=== PATIENT | female | born 1985 | race Caucasian/White ===

== ENCOUNTER 2021-08-13 10:56 | Outpatient (REF) | payer OTHER, SELFPAY ==
[2021-08-13 13:55] LABS: MANUAL DIFF FLAG NO
[2021-08-13 14:03] LABS: Appearance Urine CLEAR; Color Urine YELLOW; Glucose Urine UA NEG (NEG); Leukocyte Esterase Urine NEG (NEG); Nitrite Urine NEG (NEG); UACC Culture Trigger NO; Urine Blood TRACE (NEG); Urine Ketones NEG (NEG); Urine Protein NEG (NEG-TRACE)
[2021-08-13 14:04] LABS: Basophils Percent Auto 0.6 % (0-2); Eosinophils Absolute Auto 0.1 X10*3/uL (0.0-0.4); Eosinophils Percent Auto 1.5 % (0-4); Hematocrit 39.2 % (37-47); Imm Gran Abs Auto 0.02 X10*3/uL (0.00-0.03); Imm Gran Pct Auto 0.3 % (0.0-0.4); Lymphocytes Absolute Auto 2.1 X10*3/uL (1.2-4.9); Mean Corpuscular HGB Conc 33.2 g/dl (31.0-35.0); Mean Corpuscular Volume 87.3 fL (80-98); Mean Platelet Volume 10.4 fL (9.4-12.3); Monocytes Absolute Auto 0.4 X10*3/uL (0.1-1.2); Monocytes Percent Auto 5.2 % (2-11); Neutrophils Absolute Auto 4.2 X10*3/uL (2.0-8.3); Neutrophils Percent Auto 61.4 % (45-73); Platelet Count 285 X10*3/uL (160-400); Red Blood Count 4.49 X10*6/uL (4.20-5.50); Red Cell Distribution Width 11.6 % (11.0-16.0); White Blood Count 6.9 X10*3/uL (4.8-10.8)
[2021-08-13 14:18] LABS: RBC Urine 0-2 /HPF (0)
[2021-08-13 14:19] LABS: Bacteria Urine TRACE /LPF; Squamous Epithelial Cell Urine TRACE /LPF; WBC Urine 0 /HPF (0-4)
[2021-08-13 14:32] LABS: Alanine Aminotransferase 20 U/L (0-31); Albumin Level 4.7 g/dL (3.5-5.0); Alkaline Phosphatase 90 U/L (39-117); Anion Gap 15 (12-20); Aspartate Amino Transferase 16 U/L (5-31); Bilirubin Total 0.9 mg/dL (0.0-1.0); Blood Urea Nitrogen 14 mg/dL (9-16); Calcium 9.7 mg/dL (8.4-10.2); Carbon Dioxide 25 mmol/L (22-29); Chloride 103 mmol/L (96-108); Cholesterol 184 mg/dL; Estimated Glomerular Filt Rate > 60; Glucose Random 73 mg/dL (60-115); HDL Cholesterol 70 mg/dL; Iron 139 mcg/dL (30-160); LDL Cholesterol Calculated 105 mg/dl; Percent Iron Saturation 41 % (15-50); Sodium 139 mmol/L (135-145); Total Iron Binding Capacity 341 mcg/dL (228-428); Total Protein 7.2 g/dL (6.5-8.0); Triglycerides 45 mg/dL; Unsaturated Iron Binding 202 ug/dL
[2021-08-13 14:57] LABS: TSH reflex Free T4 1.78 uIU/mL (0.32-4.0); Vitamin D 25-OH Total 30.4 ng/mL (>30)
[2021-08-13 14:59] LABS: Folate 19.2 ng/mL (> or = 4.0); Vitamin B12 391 pg/mL (200-900)
[2021-08-13 15:28] LABS: Ferritin 51 ng/mL (10-122)
== END 2021-08-13 10:57 | disposition home or self-care (01) ==
LOC: HO.HMGCLDS 10:56
PROVIDERS: PCP Nurse Practitioner Family; Visit Provider Nurse Practitioner Family
DX: R53.83 Other fatigue (principal)
CPT/HCPCS: 36415; 80053; 80061; 81001; 81003; 82306; 82607; 82728; 82746; 83540; 84443; 85025

== ENCOUNTER 2021-12-08 09:52 | Outpatient (REF) | payer OTHER, SELFPAY ==
[2021-12-08 11:51] LABS: Appearance Urine HAZY; Color Urine YELLOW; Glucose Urine UA NEG (NEG); Leukocyte Esterase Urine NEG (NEG); Nitrite Urine NEG (NEG); PH 6.5 (5.0-8.0); Specific Gravity - Urine 1.025 (1.005-1.025); Urine Blood NEG (NEG); Urine Ketones NEG (NEG); Urine Protein NEG (NEG-TRACE)
[2021-12-08 12:04] LABS: Free T4 (Free Thyroxine) 0.91 ng/dL (0.71-1.85); TSH reflex Free T4 1.65 uIU/mL (0.32-4.0)
[2021-12-09 18:37] LABS: Triiodothyronine T3 Free 3.2 pg/mL (2.3-4.2)
[2021-12-09 21:25] LABS: Thyroid Peroxidase Antibodies 1 IU/mL (<9)
== END 2021-12-08 09:53 | disposition home or self-care (01) ==
LOC: HO.HMGCLDS 09:52
PROVIDERS: Visit Provider Nurse Practitioner Family
DX: Z00.00 Encounter for general adult medical examination without abnormal findings (principal); R53.83 Other fatigue
CPT/HCPCS: 36415; 81003; 84439; 84443; 84481; 86376

== ENCOUNTER 2022-02-18 08:29 | Outpatient (REF) | payer OTHER, SELFPAY ==
--- NOTE | ~2022-02-18 | US_ITS ---
EXAMINATION: US VENOUS WITH DOPPLER UPPER EXTREMITY, LEFT CLINICAL INFORMATION: Pain COMPARISON: None TECHNIQUE: Ultrasound of the upper extremity is performed using compression sonography and color and pulse Doppler flow with assessment of augmentation of flow. There is also imaging and Doppler assessment of the jugular and subclavian veins. Spectral analysis with color-flow imaging is performed. FINDINGS: Respiratory variation, normal compression, and augmented flow are noted throughout the upper extremity including the axillary, brachial, cubital, and radial and ulnar veins. There is normal flow in the internal jugular and subclavian veins. There is no visible deep or superficial thrombophlebitis. If the patient's symptoms progress, a followup ultrasound in 5 -7 days might be of value to exclude proximal propagation from a nonvisualized distal arm vein. US/US venous duplex UE LT IMPRESSION: No DVT demonstrated in the left upper extremity.
== END 2022-02-18 08:30 | disposition home or self-care (01) ==
LOC: HO.US 08:29
PROVIDERS: PCP Nurse Practitioner Family; Visit Provider Nurse Practitioner Family
DX: M79.602 Pain in left arm (principal)
CPT/HCPCS: 93971

== ENCOUNTER 2022-03-16 15:22 | Outpatient (REF) | payer OTHER, SELFPAY ==
[2022-03-20 16:57] LABS: HPV mRNA E6/E7 rflx Not Detected (Not Detected)
== END 2022-03-16 15:23 | disposition home or self-care (01) ==
LOC: HO.LAB 15:22
PROVIDERS: PCP Nurse Practitioner Family; Visit Provider Advanced Practice Midwife
DX: Z01.419 Encounter for gynecological examination (general) (routine) without abnormal findings (principal); Z11.51 Encounter for screening for human papillomavirus (HPV)
CPT/HCPCS: 87624; 88142

== ENCOUNTER 2022-04-02 16:32 | Outpatient (REF) | payer OTHER, SELFPAY ==
--- NOTE | ~2022-04-02 | US_ITS ---
EXAMINATION: US ABDOMEN LIMITED CLINICAL INFORMATION: Intra-abdominal and pelvic swelling, mass and lump. Assess for hernia. COMPARISON: No similar priors. TECHNIQUE: Real-time imaging of the midline abdomen. US/US abdomen limited FINDINGS/IMPRESSION: Ultrasound images of the soft tissues of the supraumbilical region in the area of concern. No evidence of hernia or measurable lesions. If symptoms persist, recommend correlation with a CT.
== END 2022-04-02 16:33 | disposition home or self-care (01) ==
LOC: HO.US 16:32
PROVIDERS: PCP Nurse Practitioner Family; Visit Provider Nurse Practitioner Family
DX: R19.00 Intra-abdominal and pelvic swelling, mass and lump, unspecified site (principal)
CPT/HCPCS: 76705

== ENCOUNTER 2022-06-28 09:27 | Outpatient (REF) | payer OTHER, SELFPAY ==
[2022-06-28 11:38] LABS: MANUAL DIFF FLAG NO
[2022-06-28 11:59] LABS: Basophils Absolute Auto 0.1 X10*3/uL (0.0-0.2); Basophils Percent Auto 0.8 % (0-2); Eosinophils Absolute Auto 0.2 X10*3/uL (0.0-0.4); Eosinophils Percent Auto 2.5 % (0-4); Hematocrit 39.4 % (37.0-47.0); Hemoglobin 13.1 g/dl (12.0-16.0); Imm Gran Abs Auto 0.02 X10*3/uL (0.00-0.03); Imm Gran Pct Auto 0.3 % (0.0-0.4); Lymphocytes Absolute Auto 2.3 X10*3/uL (1.2-4.9); Lymphocytes Percent Auto 31.6 % (20-40); Mean Corpuscular HGB Conc 33.2 g/dl (31.0-35.0); Mean Corpuscular Volume 87.4 fL (80.0-98.0); Mean Platelet Volume 9.9 fL (9.4-12.3); Monocytes Absolute Auto 0.4 X10*3/uL (0.1-1.2); Monocytes Percent Auto 5.9 % (2-11); Neutrophils Absolute Auto 4.2 x10*3/uL (2.0-8.3); Neutrophils Percent Auto 58.9 % (45-73); Platelet Count 313 X10*3/uL (160-400); Red Blood Count 4.51 X10*6/uL (4.20-5.50); Red Cell Distribution Width 11.9 % (11.0-16.0); White Blood Count 7.1 X10*3/uL (4.8-10.8)
[2022-06-28 12:02] LABS: Alanine Aminotransferase 20 U/L (0-31); Albumin Level 4.7 g/dL (3.5-5.0); Alkaline Phosphatase 54 U/L (39-117); Anion Gap 13 (12-20); Aspartate Amino Transferase 15 U/L (5-31); Bilirubin Total 0.9 mg/dL (0.0-1.0); Blood Urea Nitrogen 10 mg/dL (9-16); Calcium 9.1 mg/dL (8.4-10.2); Carbon Dioxide 26 mmol/L (22-29); Chloride 104 mmol/L (96-108); Estimated Glomerular Filt Rate > 60; Glucose Fasting 82 mg/dL (60-99); Lipase 28 U/L (8-78); Potassium 4.3 mmol/L (3.3-5.1); Sodium 139 mmol/L (135-145); Total Protein 7.3 g/dL (6.5-8.0)
[2022-06-28 12:13] LABS: Appearance Urine CLEAR; Color Urine YELLOW; Glucose Urine UA NEG (NEG); Leukocyte Esterase Urine NEG (NEG); Nitrite Urine NEG (NEG); PH 7.5 (5.0-8.0); Specific Gravity - Urine 1.015 (1.005-1.025); UACC Culture Trigger NO; Urine Blood TRACE (NEG); Urine Ketones NEG (NEG); Urine Protein NEG (NEG-TRACE)
[2022-06-28 12:24] LABS: TSH reflex Free T4 2.42 uIU/mL (0.32-4.0); Vitamin D 25-OH Total 26.7 ng/mL (>30)
[2022-06-28 12:42] LABS: RBC Urine 0-2 /HPF (0); Squamous Epithelial Cell Urine 2+ /LPF; WBC Urine 0 /HPF (0-4)
== END 2022-06-28 09:28 | disposition home or self-care (01) ==
LOC: HO.HMGCLDS 09:27
PROVIDERS: PCP Nurse Practitioner Family; Visit Provider Nurse Practitioner Family
DX: R10.9 Unspecified abdominal pain (principal)
CPT/HCPCS: 36415; 80053; 81001; 81003; 82306; 83690; 84443; 85025

== ENCOUNTER 2022-07-27 09:44 | Outpatient (REF) | payer OTHER, SELFPAY ==
[2022-07-27 11:24] LABS: Urine Cytology See Pathology rpt
[2022-07-27 11:43] LABS: Appearance Urine Clear; Color Urine Yellow; Glucose Urine UA Negative (Negative); Leukocyte Esterase Urine Small (1+) (Negative); Nitrite Urine Negative (Negative); Urine Blood Negative (Negative); Urine Ketones Negative (Negative); Urine Protein Negative (Neg-Trace)
[2022-07-27 12:10] LABS: UMIC TRIGGER UACC YES
[2022-07-27 13:42] LABS: Bacteria Urine Trace (None Seen); Hyaline Casts Urine 0-2 /LPF (0-2); RBC Urine 0-2 /HPF (0-2); UACC Culture Trigger YES; WBC Urine 0-5 /HPF (0-5)
== END 2022-07-27 09:45 | disposition home or self-care (01) ==
LOC: HO.HMGCLDS 09:44
PROVIDERS: PCP Nurse Practitioner Family; Visit Provider Nurse Practitioner Family
DX: R31.29 Other microscopic hematuria (principal)
CPT/HCPCS: 81001; 81003; 87086; 88112

== ENCOUNTER 2022-09-11 13:43 | Outpatient (REF) | payer OTHER, SELFPAY ==
[2022-09-11 15:34] LABS: Alanine Aminotransferase 14 U/L (0-31); Albumin Level 4.7 g/dL (3.5-5.0); Alkaline Phosphatase 57 U/L (39-117); Anion Gap 16 (12-20); Aspartate Amino Transferase 14 U/L (5-31); Bilirubin Total 0.6 mg/dL (0.0-1.0); Blood Urea Nitrogen 12 mg/dL (9-16); C Reactive Protein 0.03 mg/dL (< or = 0.50); Calcium 9.6 mg/dL (8.4-10.2); Carbon Dioxide 26 mmol/L (22-29); Chloride 104 mmol/L (96-108); Estimated Glomerular Filt Rate > 60; Glucose Random 84 mg/dL (60-115); Potassium 4.5 mmol/L (3.3-5.1); Sodium 141 mmol/L (135-145); Total Protein 7.2 g/dL (6.5-8.0)
[2022-09-11 15:55] LABS: Free T4 (Free Thyroxine) 0.97 ng/dL (0.71-1.85); Thyroid Stimulating Hormone 1.62 uIU/mL (0.32-4.0); Vitamin D 25-OH Total 29.6 ng/mL (>30)
[2022-09-13 12:56] LABS: Thyroid Peroxidase Antibodies 1 IU/mL (<9)
[2022-09-13 13:02] LABS: DHEA Sulfate 80 mcg/dL (19-237); Follicle Stimulating Hormone 6.1 mIU/mL; Lutenizing Hormone 5.4 mIU/mL
[2022-09-13 22:32] LABS: Thyroglobulin Antibodies <1 IU/mL (< or = 1)
[2022-09-16 12:07] LABS: Triiodothyronine T3 Reverse 14 ng/dL (8-25)
[2022-09-16 17:31] LABS: Testosterone, Free 1.5 pg/mL (0.1-6.4); Testosterone, Total 16 ng/dL (2-45)
[2022-09-19 02:01] LABS: Estradiol Free 0.71 pg/mL; Estradiol, Ultrasensitive 43 pg/mL
[2022-09-19 20:06] LABS: Progesterone <0.1 ng/mL
== END 2022-09-11 13:44 | disposition home or self-care (01) ==
LOC: HO.HMGCLDS 13:43
PROVIDERS: PCP Nurse Practitioner Family; Visit Provider Physician Assistant
DX: E03.9 Hypothyroidism, unspecified (principal); F32.81 Premenstrual dysphoric disorder; E55.9 Vitamin D deficiency, unspecified; E28.2 Polycystic ovarian syndrome; R53.83 Other fatigue; N95.9 Unspecified menopausal and perimenopausal disorder
CPT/HCPCS: 36415; 80053; 82306; 82627; 82670; 82681; 83001; 83002; 84144; 84402; 84403; 84439; 84443; 84482; 86140; 86376; 86800; 99212

== ENCOUNTER 2022-11-02 10:33 | Emergency (ER) | payer OTHER, SELFPAY ==
--- NOTE | ~2022-11-02 | CT_ITS ---
EXAMINATION: CT ABDOMEN AND PELVIS WITHOUT CONTRAST CLINICAL INFORMATION: Left lower quadrant pain radiating to the left leg. COMPARISON: Ultrasound abdomen limited 04/02/2022 TECHNIQUE: Multidetector volumetric imaging was performed from the superior aspect of the liver through the pubic symphysis. Sagittal and coronal reformatted images were obtained on the technologist's workstation. This CT examination was performed using dose optimization techniques as appropriate, variously including the following: *Automated exposure control *Adjustment of mA and/or kV according to patient size (this includes techniques or standardized protocols for targeted exams where dose is matched to indication/reason for exam; i.e. extremities or head) *Use of iterative reconstruction technique DLP: 440 mGy-cm FINDINGS: LUNG BASES: The visualized lung bases are unremarkable. LIVER, GALLBLADDER, AND BILIARY TREE: The liver is normal in size, shape, and attenuation. No focal hepatic lesion or biliary ductal dilatation is present. Status post cholecystectomy. PANCREAS: Unremarkable. SPLEEN: Unremarkable. ADRENAL GLANDS: Unremarkable. KIDNEYS AND URETERS: There is a nonobstructive 2 mm stone in the mid upper pole of the right kidney. There are no stones in the left kidney. There is no hydronephrosis. No ureteral calculi. BLADDER: Unremarkable. GASTROINTESTINAL TRACT: The small and large bowel are unremarkable. The appendix is nonvisualized.. No inflammation of the mesentery. ABDOMINAL WALL: No significant hernia is appreciated. LYMPH NODES: Normal. VASCULAR: Unremarkable. PELVIC VISCERA: Unremarkable. OSSEOUS STRUCTURES: Unremarkable. CT/CT abdomen pelvis wo IV con IMPRESSION: 1. No acute abnormality CT scan abdomen pelvis. 2. 2 mm nonobstructive stone in the right kidney. 3. Status post cholecystectomy. Fleischner guidelines were followed.
[2022-11-02 10:51] VITALS: BP 125/94; PULSE 110; RESP 18; TEMP 36.9; O2SAT 98; BMI 22.4
--- NOTE | 2022-11-02 10:57 | ECG_ITS ---
Test Reason : tachycardia Blood Pressure : / mmHG Vent. Rate : 095 BPM Atrial Rate : 095 BPM P-R Int : 156 ms QRS Dur : 092 ms QT Int : 342 ms P-R-T Axes : 072 041 067 degrees QTc Int : 429 ms Normal sinus rhythm with sinus arrhythmia Incomplete right bundle branch block Borderline ECG No previous ECGs available Referred By: Generic ED Physician Electronically Signed By:Milind Padilla
[2022-11-02 11:30] LABS: MANUAL DIFF FLAG NO
[2022-11-02 11:33] LABS: Basophils Absolute Auto 0.1 X10*3/uL (0.0-0.2); Basophils Percent Auto 0.6 % (0-2); Eosinophils Absolute Auto 0.1 X10*3/uL (0.0-0.4); Eosinophils Percent Auto 1.2 % (0-4); Hemoglobin 14.4 g/dl (12.0-16.0); Imm Gran Abs Auto 0.04 X10*3/uL (0.00-0.03); Imm Gran Pct Auto 0.5 % (0.0-0.4); Lymphocytes Absolute Auto 1.8 X10*3/uL (1.2-4.9); Mean Corpuscular HGB Conc 33.5 g/dl (31.0-35.0); Mean Corpuscular Hemoglobin 28.6 pg (27.0-33.0); Mean Corpuscular Volume 85.3 fL (80.0-98.0); Mean Platelet Volume 9.1 fL (9.4-12.3); Monocytes Absolute Auto 0.4 X10*3/uL (0.1-1.2); Monocytes Percent Auto 4.7 % (2-11); Neutrophils Absolute Auto 6.1 x10*3/uL (2.0-8.3); Platelet Count 278 X10*3/uL (160-400); Red Blood Count 5.04 X10*6/uL (4.20-5.50); Red Cell Distribution Width 11.7 % (11.0-16.0); White Blood Count 8.4 X10*3/uL (4.8-10.8)
[2022-11-02 11:34] LABS: Appearance Urine Clear; Color Urine Yellow; Glucose Urine UA Negative (Negative); Leukocyte Esterase Urine Negative (Negative); Nitrite Urine Negative (Negative); UMIC TRIGGER UACC YES; Urine Blood Trace (Negative); Urine Ketones Negative (Negative); Urine Protein Negative (Neg-Trace)
[2022-11-02 11:37] LABS: Bacteria Urine None Seen (None Seen); Hyaline Casts Urine 0-2 /LPF (0-2); RBC Urine 0-2 /HPF (0-2); Squamous Epithelial Cell Urine 0-2 /HPF (0-2); WBC Urine 0-5 /HPF (0-5)
[2022-11-02 11:57] LABS: Alanine Aminotransferase 17 U/L (0-31); Albumin Level 5.2 g/dL (3.5-5.0); Alkaline Phosphatase 56 U/L (39-117); Anion Gap 12 (12-20); Aspartate Amino Transferase 12 U/L (5-31); Blood Urea Nitrogen 9 mg/dL (9-16); Carbon Dioxide 27 mmol/L (22-29); Chloride 104 mmol/L (96-108); Creatinine Clr Calc Pharmacy 98.9; Estimated Glomerular Filt Rate > 60; Glucose Random 101 mg/dL (60-115); Sodium 139 mmol/L (135-145); Total Protein 7.9 g/dL (6.5-8.0)
[2022-11-02 12:49] LABS: Bilirubin Total 0.6 mg/dL (0.0-1.0)
[2022-11-02 14:32] LABS: UPreg QC Valid YES; Urine Pregnancy NEGATIVE (NEGATIVE)
[2022-11-02 14:42] LABS: Lipase 27 U/L (8-78)
--- NOTE | 2022-11-02 19:24 | ED.ABDPAIN ---
HPI - Abdominal Pain General Chief Complaint: Abdominal Pain Stated Complaint: Upper R abd pain/Nausea Time Seen by Provider: 11/02/22 18:48 Source: patient and old records reviewed Limitations: no limitations History of Present Illness HPI narrative: Patient with several days of abdominal pain. It started in left lower quadrant radiating to the left back. Since that time it has migrated in she had some right upper quadrant pain and now mostly epigastric discomfort. She has a history of cholecystectomy secondary to gallbladder polyp. No other abdominal surgeries. Some nausea but no vomiting. She has had loose bowel movements but no mireya watery or bloody stool. No urinary symptoms. No definite fevers or chills but states for quite some time at night she has been feeling hot. She is currently nursing and would like to avoid IV contrast. Related Data Previous Rx's Medication Instructions Recorded cyclobenzaprine 5 mg tablet 5 mg PO DAILY PRN muscle spasm 30 03/23/22 days #45 tabs omeprazole magnesium 20 mg 20 mg PO DAILY #30 tabs 11/02/22 tablet,delayed release (Prilosec OTC) Allergies Allergy/AdvReac Type Severity Reaction Status Date / Time Sulfa (Sulfonamide Allergy Unknown Hives/whole Verified 05/18/22 14:25 Antibiotics) body itchiness Review of Systems Comments: No fevers or chills Comments: No chest pain Comments: No cough or dyspnea Comments: Abdominal symptoms as described Comments: History of chronic microscopic hematuria. [facility] Past Medical History Medical History (Updated 11/02/22 @ 20:48 by Al Bustillo MD) Lactating mother Thoracic outlet syndrome Surgical History Hx of cholecystectomy Hx of wisdom tooth extraction Family History Family History Father S/P CABG x 4 Diabetes mellitus with coincident hypertension Maternal Grandmother History of breast cancer Social History Social History Housing: House Patient Tobacco Use Status: Never used Tobacco e-Cigarette/Vaping Use: Never Used Second Hand Smoke Exposure: No Advance Directives: No Advance Directives Information Provided: No service: No Current occupational status: unemployed 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 No acute distress. Vital signs stable with mild tachycardia Resp Other: Clear and equal bilaterally without wheezes rales or rhonchi. Good air entry Cardio Other: Regular rate and rhythm without murmurs rubs or gallops GI Other: Soft. Mild epigastric tenderness without guarding or rebound. Nondistended. Normal bowel sounds. No flank tenderness to percussion. No lower abdominal tenderness at this time Skin Other: Warm pink and dry without rash Neuro Other: No gross neurologic deficits Course Course Course Narrative: 19:30. CBC is normal. Chemistries, LFTs, lipase, BUN and creatinine are all normal as well. Urinalysis shows trace blood but otherwise is negative IV fluids ordered. Declining medications such as Zofran at this time. Understands she can request something for nausea if she changes her mind. 20:46. CT scan is negative without acute abnormality. I discussed the results and possible etiologies of the pain with the patient. She is willing to try Tums here and possibly Prilosec at home. Stable for discharge home. 21:49. Patient is feeling better after Tums. Will send prescription for Prilosec Medical Decision Making Medical Decision Making MDM Narrative: Patient with migrating abdominal discomfort with multiple potential etiologies. Original pain of left lower quadrant radiating to left flank consistent with either diverticulitis, kidney stone, urinary tract infection. Currently with maximum tenderness over epigastrium with possible etiologies consisting of gastritis, peptic ulcer disease, pancreatitis, gastroenteritis. She is remotely status post cholecystectomy so doubt biliary colic. Will order CT scan. Lab Data Result Diagrams: 11/02/22 11:26 11/02/22 11:26 Labs: Lab Results 11/02/22 11/02/22 11/02/22 Range/Units 11:26 11:26 11:26 WBC 8.4 (4.8-10.8) X10*3/uL RBC 5.04 (4.20-5.50) X10*6/uL Hgb 14.4 (12.0-16.0) g/dl Hct 43.0 (37.0-47.0) % MCV 85.3 (80.0-98.0) fL MCH 28.6 (27.0-33.0) pg MCHC 33.5 (31.0-35.0) g/dl RDW 11.7 (11.0-16.0) % Plt Count 278 (160-400) X10*3/uL MPV 9.1 L (9.4-12.3) fL Immature Gran % (Auto) 0.5 H (0.0-0.4) % Neut % (Auto) 72.0 (45-73) % Lymph % (Auto) 21.0 (20-40) % [place] % (Auto) 4.7 (2-11) % Eos % (Auto) 1.2 (0-4) % Baso % (Auto) 0.6 (0-2) % Lymph # (Auto) 1.8 (1.2-4.9) X10*3/uL [place] # (Auto) 0.4 (0.1-1.2) X10*3/uL Eos # (Auto) 0.1 (0.0-0.4) X10*3/uL Baso # (Auto) 0.1 (0.0-0.2) X10*3/uL Abs Immat Gran (auto) 0.04 H (0.00-0.03) X10*3/uL Absolute Neuts (auto) 6.1 (2.0-8.3) x10*3/uL Absolute Nucleated RBC 0.000 (0.0-0.012) X10*3/uL Nucleated RBC % (auto) 0.0 (0.0-0.2) /100WBC Sodium 139 (135-145) mmol/L Potassium 4.0 (3.3-5.1) mmol/L Chloride 104 (96-108) mmol/L Carbon Dioxide 27 (22-29) mmol/L Anion Gap 12 (12-20) BUN 9 (9-16) mg/dL Creatinine 0.70 (0.5-1.4) mg/dL Estim Creat Clear Calc 98.9 Estimated GFR > 60 Random Glucose 101 (60-115) mg/dL Calcium 10.0 (8.4-10.2) mg/dL Total Bilirubin 0.6 (0.0-1.0) mg/dL AST 12 (5-31) U/L ALT 17 (0-31) U/L Alkaline Phosphatase 56 (39-117) U/L Total Protein 7.9 (6.5-8.0) g/dL Albumin 5.2 H (3.5-5.0) g/dL Lipase 27 (8-78) U/L Urine Color Yellow Urine Appearance Clear Urine pH 8.0 (5.0-9.0) Ur Specific [place] 1.010 (1.005-1.025) Urine Protein Negative (Neg-Trace) mg/dL Urine Glucose (UA) Negative (Negative) mg/dL Urine Ketones Negative (Negative) mg/dL Urine Blood Trace H (Negative) Urine Nitrite Negative (Negative) Ur Leukocyte Esterase Negative (Negative) Urine RBC 0-2 (0-2) /HPF Urine WBC 0-5 (0-5) /HPF Ur Squamous Epith Cells 0-2 (0-2) /HPF Urine Bacteria None Seen (None Seen) Hyaline Casts 0-2 (0-2) /LPF Urine Test (NEGATIVE) 11/02/22 Range/Units 11:26 WBC (4.8-10.8) X10*3/uL RBC (4.20-5.50) X10*6/uL Hgb (12.0-16.0) g/dl Hct (37.0-47.0) % MCV (80.0-98.0) fL MCH (27.0-33.0) pg MCHC (31.0-35.0) g/dl RDW (11.0-16.0) % Plt Count (160-400) X10*3/uL MPV (9.4-12.3) fL Immature Gran % (Auto) (0.0-0.4) % Neut % (Auto) (45-73) % Lymph % (Auto) (20-40) % [place] % (Auto) (2-11) % Eos % (Auto) (0-4) % Baso % (Auto) (0-2) % Lymph # (Auto) (1.2-4.9) X10*3/uL [place] # (Auto) (0.1-1.2) X10*3/uL Eos # (Auto) (0.0-0.4) X10*3/uL Baso # (Auto) (0.0-0.2) X10*3/uL Abs Immat Gran (auto) (0.00-0.03) X10*3/uL Absolute Neuts (auto) (2.0-8.3) x10*3/uL Absolute Nucleated RBC (0.0-0.012) X10*3/uL Nucleated RBC % (auto) (0.0-0.2) /100WBC Sodium (135-145) mmol/L Potassium (3.3-5.1) mmol/L Chloride (96-108) mmol/L Carbon Dioxide (22-29) mmol/L Anion Gap (12-20) BUN (9-16) mg/dL Creatinine (0.5-1.4) mg/dL Estim Creat Clear Calc Estimated GFR Random Glucose (60-115) mg/dL Calcium (8.4-10.2) mg/dL Total Bilirubin (0.0-1.0) mg/dL AST (5-31) U/L ALT (0-31) U/L Alkaline Phosphatase (39-117) U/L Total Protein (6.5-8.0) g/dL Albumin (3.5-5.0) g/dL Lipase (8-78) U/L Urine Color Urine Appearance Urine pH (5.0-9.0) Ur Specific [place] (1.005-1.025) Urine Protein (Neg-Trace) mg/dL Urine Glucose (UA) (Negative) mg/dL Urine Ketones (Negative) mg/dL Urine Blood (Negative) Urine Nitrite (Negative) Ur Leukocyte Esterase (Negative) Urine RBC (0-2) /HPF Urine WBC (0-5) /HPF Ur Squamous Epith Cells (0-2) /HPF Urine Bacteria (None Seen) Hyaline Casts (0-2) /LPF Urine Test NEGATIVE (NEGATIVE) Medications Administered Discontinued Medications Generic Name Dose Route Start Last Admin Trade Name Freq PRN Reason Stop Dose Admin Calcium Carbonate 1,500 mg 11/02/22 20:52 11/02/22 21:32 Calcium Carbonate 750 Mg Tab.Chew PO 11/02/22 20:53 1,500 mg ONCE ONE Administration Sodium Chloride 1,000 mls @ 999 mls/hr 11/02/22 19:30 11/02/22 21:33 Ns IV 11/02/22 20:30 Not Given .Q1H1M [facility] Discharge Plan Discharge Clinical Impression: Abdominal pain Patient Disposition: Home, Self-Care Instructions: Abdominal Pain (ED) Prescriptions: New omeprazole magnesium [Prilosec OTC] 20 mg tablet,delayed release (DR/EC) 20 mg PO DAILY Qty: 30 0RF No Action cyclobenzaprine 5 mg tablet 5 mg PO DAILY PRN (Reason: muscle spasm) 30 Days Qty: 45 0RF Rx Instructions: 1-2 tabs
[2022-11-02] MEDS: Calcium Carbonate 750 MG TAB.CHEW 1500 MG PO (21:32)
== END 2022-11-02 22:22 | disposition home or self-care (01) ==
PROVIDERS: Nurse Practitioner Family; Emergency Provider Emergency Medicine; PCP Nurse Practitioner Family
DX: R10.9 Unspecified abdominal pain (principal); Z90.49 Acquired absence of other specified parts of digestive tract
CPT/HCPCS: 36415; 74176; 80053; 81001; 81025; 83690; 85025; 93005; 99283; 99284

== ENCOUNTER 2023-08-24 07:31 | Outpatient (AMB) | payer OTHER, SELFPAY ==
--- NOTE | 2023-08-24 07:15 | MHC.PC.OV ---
Intake Visit Reasons: Discuss referral for ID ([employer])[phone] Allergies Sulfa (Sulfonamide Antibiotics) Allergy (Unknown, Verified 11/30/22 16:36) Hives/whole body itchiness Medication List - Last Reconciled 08/24/23 by JAQUI Jaime omeprazole magnesium (Prilosec OTC) 20 mg PO DAILY PRN Tobacco use date assessed: 11/30/22 HPI Discuss referral for ID ([employer])[phone] HPI Details Pt c/o ongoing numbness, tingling, and weakness of her upper and lower extremities. She also reports fatigue. These issues have been ongoing since April. Pt has seen specialists including neurology and rheumatology. Will order more labs. Pt reported that the last specialist (rheum) told her she could be having atypical migraines . 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 Mariano Arellano, Maryse Taylor, Igor Finn and colleagues, with an educational debbie from [employer]. Review of Systems Const Reports as per HPI Physical exam (Primary Care) Tobacco/Smoking Status: Tobacco use Status Tobacco use date assessed 11/30/22 08/24/23 07:17 Patient Tobacco Use Status Never used Tobacco 08/24/23 07:17 e-Cigarette/Vaping Use Never Used 08/24/23 07:17 Thrive Assessment: Date of Thrive Assessment Date Thrive assessed 11/24/21 08/24/23 07:17 Const General: cooperative Orientation/consciousness: patient oriented x3 Neuro General: patient oriented x3 Psych Appearance: grossly normal Mental Status: mental status grossly normal Speech and movement: Clear speech present Affect: normal affect Attitude: cooperative Thought process: Normal thought process present Thought content: Normal thought content present Insight: Good insight present (Psych) Judgement: Good judgement present (Psych) Telehealth Telehealth Location of provider rendering services: practice address Location of patient: address on file Patient Identification confirmed using: Name, : Yes Telehealth method: video Patient verbally consented to treatment: Yes Patient verbally consented to billing insurance company: Yes Patient informed of any privacy concerns related to visit: Yes Minutes spent on Phone/Video with Pt.: 10 Assessment and Plan Assessment & Plan (1) Numbness and tingling of upper and lower extremities of both sides: Code(s): R20.0 - Anesthesia of skin; R20.2 - Paresthesia of skin Plan: Labs ordered (2) Weakness: Code(s): R53.1 - Weakness Plan: Labs ordered Plan The patient agreed to the use of a medical office manager for this encounter. Scribed for JORGE Brewster- by Yuliana Han medical office manager, on 08/24/2023 at 07:15 EST Orders: Orders Mango-Nassar Virus Profile Today R20.0 - Anesthesia of skin, R20.2 - Paresthesia of skin, R53.1 - Weakness Cortisol Random Today R20.0 - Anesthesia of skin, R20.2 - Paresthesia of skin, R53.1 - Weakness Tick-borne Disease Molecular Today R20.0 - Anesthesia of skin, R20.2 - Paresthesia of skin, R53.1 - Weakness Complete Blood Count Auto Diff Today R20.0 - Anesthesia of skin, R20.2 - Paresthesia of skin, R53.1 - Weakness Ferritin Today R20.0 - Anesthesia of skin, R20.2 - Paresthesia of skin, R53.1 - Weakness IRON PROFILE Today R20.0 - Anesthesia of skin, R20.2 - Paresthesia of skin, R53.1 - Weakness C Reactive Protein Today R20.0 - Anesthesia of skin, R20.2 - Paresthesia of skin, R53.1 - Weakness Vitamin B12 and Folate Today R20.0 - Anesthesia of skin, R20.2 - Paresthesia of skin, R53.1 - Weakness Heavy Metals Screen Blood Today R20.0 - Anesthesia of skin, R20.2 - Paresthesia of skin, R53.1 - Weakness Comprehensive Met. Panel Today R20.0 - Anesthesia of skin, R20.2 - Paresthesia of skin, R53.1 - Weakness Erythrocyte Sedimentation Rate Today R20.0 - Anesthesia of skin, R20.2 - Paresthesia of skin, R53.1 - Weakness Vitamin B6 Today R20.0 - Anesthesia of skin, R20.2 - Paresthesia of skin, R53.1 - Weakness Coding Level of Care Code Tele Est Pt Level 3 (72646) Diagnoses Numbness and tingling of upper and lower extremities of both sides R20.0; R20.2 Weakness R53.1
== END 2023-08-24 07:57 | disposition home or self-care (01) ==
PROVIDERS: PCP Nurse Practitioner Family; Visit Provider Nurse Practitioner Family
DX: R20.0 Anesthesia of skin (principal); R20.2 Paresthesia of skin; R53.1 Weakness
CPT/HCPCS: 99213

== ENCOUNTER 2023-12-05 16:06 | Outpatient (AMB) | payer OTHER, SELFPAY ==
--- NOTE | 2023-12-05 16:23 | A.OFFPC_ITS ---
Vital Signs 12/05/23 16:26 Height 5 ft 5 in Weight 150 lb BMI 25.0 BP 90/56 L Blood Pressure Location Lt brachial Position Sitting Pulse 68 Pulse Source Pulse Oximeter Pulse Oximetry (%) 98 Oxygen Delivery Method Room Air Intake Visit Reasons: Annual PE Intake Note: Patient here for Physical exam. pt would like to talk about ED trip. Allergies Sulfa (Sulfonamide Antibiotics) Allergy (Unknown, Verified 12/05/23 16:29) Hives/whole body itchiness Medication List - Last Reconciled 12/05/23 by JAQUI Jaime lysine 1,000 mg PO DAILY vitamin B complex 1 tab PO DAILY Tobacco use date assessed: 12/05/23 Dental Screening Dental Screen Date: 12/05/23 Did you have a dental visit in the last 12 months?: Yes Did you have a dental problem in the last 6 months where you did not have access to dental care?: No Was dental information given to patient?: Patient has dentist HPI Annual PE HPI Details Pt is here for a PE. Will order labs. pt has a MEDICAL DEVICE for paps. Pt has been following up with multiple specialists for many different symptoms. She is seeing neurology, rheumatology, and vascular. ? thoracic outlet syndrome, next follow up is with vascular. Recent ER visit at [facility], for spontaneous diarrhea, bloating, severe RUQ pain. US was neg, though LFTs were elevated (please see notes from hospital). Hypomagnesemia, will recheck labs. Today, pt reports her RUQ is less tender, tolerating diet, no fevers/chills. The plan is to recheck labs accordingly. 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 Mariano Arellano, Maryse Taylor, Igor Finn and colleagues, with an educational debbie from [employer]. Review of Systems Const Denies chills and Denies fever(s) Eyes Denies blurry vision ENT Denies vertigo, Denies dizziness and Denies sore throat Card Denies chest pain at rest, Denies chest pain with activity, Denies diaphoresis, Denies dyspnea and Denies dyspnea on exertion Resp Denies cough, Denies dyspnea, Denies dyspnea on exertion and Denies wheezing GI Denies abdominal pain, Denies melena, Denies hematochezia, Denies constipation, Denies diarrhea and Denies loose stools Denies hematuria Musc Denies numbness and Denies tingling Skin/Breast Denies lesions Neuro Denies vertigo, Denies dizziness, Denies numbness and Denies tingling Psych Denies anxiety, Denies depression, Denies homicidal ideation, Denies suicidal ideation and Denies other (substance abuse) Aller/Immun Denies wheezing Physical exam (Primary Care) Vital Signs: Last Vital Signs Pulse 68 12/05/23 16:26 BP 90/56 L 12/05/23 16:26 Pulse Ox 98 12/05/23 16:26 Oxygen Delivery Method Room Air 12/05/23 16:26 BMI result Body Mass Index 25.0 Tobacco/Smoking Status: Tobacco use Status Tobacco use date assessed 12/05/23 12/05/23 16:33 Patient Tobacco Use Status Never used Tobacco 12/05/23 16:24 e-Cigarette/Vaping Use Never Used 12/05/23 16:24 Thrive Assessment: Date of Thrive Assessment Date Thrive assessed 11/24/21 12/05/23 16:24 Const General: cooperative Nutritional Appearance: well nourished Orientation/consciousness: patient oriented x3 HENMT Head: Yes normal to inspection, Yes normocephalic and Yes atraumatic Ears: TM's normal bilaterally Eyes General: appearance normal, both eyes and all related structures Alignment and Position: alignment normal and position normal Neck Neck: Yes normal visual inspection and Yes no lymphadenopathy Thyroid: Thyroid normal Resp Effort & Inspection: normal respiratory effort Auscultation: clear to auscultation bilaterally Cardio Rate: regular rate Rhythm: regular rhythm Heart sounds: S1 normal heart sound present, S2 normal heart sound present and no murmurs GI Palpation (GI): Soft to palpation and nontender Auscultation: normal bowel sounds Skin Other: hands were cool to touch, weak radial pulses bilat Rashes: no rashes Neuro General: patient oriented x3, moves all extremities, no focal motor deficits and deep tendon reflexes 2+ bilaterally Romberg Test: Negative Psych Appearance: grossly normal Mental Status: mental status grossly normal Speech and movement: Normal speech and movement present Affect: normal affect Attitude: cooperative Thought process: Normal thought process present Thought content: Normal thought content present Insight: Good insight present (Psych) Judgement: Good judgement present (Psych) Assessment and Plan Assessment & Plan (1) Physical exam: Code(s): Z00.00 - Encounter for general adult medical examination without abnormal findings (2) Bloating: Code(s): R14.0 - Abdominal distension (gaseous) Plan: reassessing labs (3) Elevated liver enzymes: Code(s): R74.8 - Abnormal levels of other serum enzymes Plan: reassessing labs (4) Hypomagnesemia: Code(s): E83.42 - Hypomagnesemia Plan: recheck lab Orders: Orders Lipid Panel Today Z00.00 - Encounter for general adult medical examination without abnormal findings UA CC w/rflx Micro + Cult Today Z00.00 - Encounter for general adult medical examination without abnormal findings Endomysial IgA rflx Titer Today R14.0 - Abdominal distension (gaseous) Transglutaminase IgA Today R14.0 - Abdominal distension (gaseous) Hepatitis A,B,C Profile Today R14.0 - Abdominal distension (gaseous), R74.8 - Abnormal levels of other serum enzymes Mango-Nassar Virus Profile Today R74.8 - Abnormal levels of other serum enzymes Complete Blood Count Auto Diff Today Z00.00 - Encounter for general adult medical examination without abnormal findings Comprehensive [place]. Panel Fast Today Z00.00 - Encounter for general adult medical examination without abnormal findings TSH reflex Free T4 Today Z00.00 - Encounter for general adult medical examination without abnormal findings Magnesium Today E83.42 - Hypomagnesemia Coding Level of Care Code Est Pt Prev Care 18-39y(42951) Diagnoses Physical exam Z00.00 Bloating R14.0 Elevated liver enzymes R74.8 Hypomagnesemia E83.42
[2023-12-05 16:26] VITALS: BP 90/56; PULSE 68; O2SAT 98; BMI 25.0
== END 2023-12-05 17:15 | disposition home or self-care (01) ==
PROVIDERS: Visit Provider Nurse Practitioner Family
DX: Z00.00 Encounter for general adult medical examination without abnormal findings (principal); R14.0 Abdominal distension (gaseous); R74.8 Abnormal levels of other serum enzymes; E83.42 Hypomagnesemia
CPT/HCPCS: 99395

== ENCOUNTER 2024-01-23 07:39 | Outpatient (AMB) | payer OTHER, SELFPAY ==
--- NOTE | 2024-01-23 07:30 | MHC.PC.OV ---
Intake Visit Reasons: follow up per brittany Allergies Sulfa (Sulfonamide Antibiotics) Allergy (Unknown, Verified 12/05/23 16:29) Hives/whole body itchiness Medication List - Last Reconciled 01/23/24 by JAQUI Jaime lysine 1,000 mg PO DAILY vitamin B complex 1 tab PO DAILY Tobacco use date assessed: 12/05/23 HPI follow up per brittany HPI Details Pt needs FMLA paperwork for her mother to assist pt with childcare and her own care. Pt is seeing neuro, endo, and rheumatology. She reports ongoing numbness to her extremities, vertigo, and fatigue. Will await notes from specialists, still trying to pinpoint diagnoses. Denies fever, chills, and dizziness. 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 Mariano Arellano, Maryse Taylro, Igor Finn and colleagues, with an educational debbie from [employer]. Review of Systems Const Reports as per HPI Physical exam (Primary Care) Tobacco/Smoking Status: Tobacco use Status Tobacco use date assessed 12/05/23 01/23/24 07:33 Patient Tobacco Use Status Never used Tobacco 01/23/24 07:33 e-Cigarette/Vaping Use Never Used 01/23/24 07:33 Thrive Assessment: Date of Thrive Assessment Date Thrive assessed 11/24/21 01/23/24 07:33 Const General: cooperative Orientation/consciousness: patient oriented x3 Neuro General: patient oriented x3 Psych Appearance: grossly normal Mental Status: mental status grossly normal Speech and movement: Clear speech present Affect: normal affect Attitude: cooperative Thought process: Normal thought process present Thought content: Normal thought content present Insight: Good insight present (Psych) Judgement: Good judgement present (Psych) Telehealth Telehealth Location of provider rendering services: practice address Location of patient: address on file Patient Identification confirmed using: Name, : Yes Telehealth method: video Patient verbally consented to treatment: Yes Patient verbally consented to billing insurance company: Yes Patient informed of any privacy concerns related to visit: Yes Minutes spent on Phone/Video with Pt.: 10 Assessment and Plan Assessment & Plan (1) Fatigue: Code(s): R53.83 - Other fatigue Plan: follow up with specialists (2) Numbness and tingling of upper and lower extremities of both sides: Code(s): R20.0 - Anesthesia of skin; R20.2 - Paresthesia of skin Plan: follow up with specialists Plan The patient agreed to the use of a medical record retrieval specialist for this encounter. Scribed for JAQUI Brewster by oksana Campos scribe, on 01/23/2024 at 07:25 EST. Coding Level of Care Code Tele Est Pt Level 3 (64216) Diagnoses Fatigue R53.83 Numbness and tingling of upper and lower extremities of both sides R20.0; R20.2
== END 2024-01-23 12:34 | disposition home or self-care (01) ==
LOC: HO.HMGC 07:39
PROVIDERS: PCP Nurse Practitioner Family; Visit Provider Nurse Practitioner Family
DX: R53.83 Other fatigue (principal); R20.0 Anesthesia of skin; R20.2 Paresthesia of skin
CPT/HCPCS: 99213

== ENCOUNTER 2024-02-13 15:12 | Outpatient (AMB) | payer OTHER, SELFPAY ==
--- NOTE | 2024-02-13 15:16 | A.OFFPC_ITS ---
Vital Signs 02/13/24 15:18 Weight 147 lb BP 94/60 Blood Pressure Location Lt brachial Position Sitting Pulse 68 Pulse Source Pulse Oximeter Pulse Oximetry (%) 97 Oxygen Delivery Method Room Air Intake Visit Reasons: FMLA paperwork Intake Note: Patient here to talk about FMLA, weakness,fatigued etc. Allergies Sulfa (Sulfonamide Antibiotics) Allergy (Unknown, Verified 02/13/24 15:19) Hives/whole body itchiness Tobacco use date assessed: 12/05/23 Dental Screening Dental Screen Date: 12/05/23 HPI FMLA paperwork HPI Details Pt reports ongoing muscle spasms, fatigue, pain, temperature changes, N/V, blurred vision, neropathy to upper and lower extremities, palpitations, and poor short term memory. and pressure to her upper neck. She further reports that her jaw becomes rigid and difficult to move after talking for long periods. Pt needs FMLA paperwork filled out for her mother to assist pt with childcare and her own care. This paperwork was filled out previously and misplaced. Will fill this out again. Pt is following up with neurology and rheumatology. Pt is seeing a chiropractor and a more holistic provider. Pt ? a rare tick borne illness? Denies fever, chills, and chest pain. 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 Mariano Arellano, Maryse Taylor, Igor Finn and colleagues, with an educational debbie from [employer]. Review of Systems Const Reports as per HPI Physical exam (Primary Care) Vital Signs: Last Vital Signs Pulse 68 02/13/24 15:18 BP 94/60 02/13/24 15:18 Pulse Ox 97 02/13/24 15:18 Oxygen Delivery Method Room Air 02/13/24 15:18 Tobacco/Smoking Status: Tobacco use Status Tobacco use date assessed 12/05/23 02/13/24 15:18 Patient Tobacco Use Status Never used Tobacco 02/13/24 15:18 e-Cigarette/Vaping Use Never Used 02/13/24 15:18 Thrive Assessment: Date of Thrive Assessment Date Thrive assessed 11/24/21 02/13/24 15:18 Const General: cooperative Orientation/consciousness: patient oriented x3 Resp Effort & Inspection: normal respiratory effort Auscultation: clear to auscultation bilaterally Cardio Rate: regular rate Rhythm: regular rhythm Heart sounds: S1 normal heart sound present and S2 normal heart sound present Neuro General: patient oriented x3 and CN's II-XI intact bilaterally Psych Appearance: grossly normal Mental Status: mental status grossly normal Speech and movement: Normal speech and movement present Affect: normal affect Attitude: cooperative Thought process: Normal thought process present Thought content: Normal thought content present Insight: Good insight present (Psych) Judgement: Good judgement present (Psych) Assessment and Plan Assessment & Plan (1) Weakness: Code(s): R53.1 - Weakness Plan: pt is has seen and is following up with multiple specialists (2) Fatigue: Code(s): R53.83 - Other fatigue Plan The patient agreed to the use of a medical insurance biller for this encounter. Scribed for JAQUI Brewster by Yuliana Han medical insurance biller, on 02/13/2024 at 15:25 EST. Coding Level of Care Code Est Pt Level 3 (29995) Diagnoses Weakness R53.1 Fatigue R53.83
[2024-02-13 15:18] VITALS: BP 94/60; PULSE 68; O2SAT 97
== END 2024-02-13 17:03 | disposition home or self-care (01) ==
PROVIDERS: PCP Nurse Practitioner Family; Visit Provider Nurse Practitioner Family
DX: R53.1 Weakness (principal); R53.83 Other fatigue
CPT/HCPCS: 99213

== ENCOUNTER 2024-06-02 10:34 | Outpatient (REF) | payer OTHER, SELFPAY ==
[2024-06-02 11:53] LABS: Lactate Dehydrogenase 125 U/L (122-220)
[2024-06-04 08:23] LABS: Haptoglobin 130 mg/dL (43-212)
[2024-06-07 16:03] LABS: Glucose-6-Phosphate Dehydrogen 14.5 U/g Hgb (7.0-20.5)
== END 2024-06-02 10:35 | disposition home or self-care (01) ==
LOC: HO.LAB 10:34
PROVIDERS: PCP Nurse Practitioner Family; Visit Provider Nurse Practitioner Family
DX: R53.83 Other fatigue (principal)
CPT/HCPCS: 36415; 82955; 83010; 83615

== ENCOUNTER 2024-06-06 07:01 | Outpatient (AMB) | payer OTHER, SELFPAY ==
--- NOTE | 2024-06-06 07:54 | A.OFFPC_ITS ---
Intake Visit Reasons: update Allergies Sulfa (Sulfonamide Antibiotics) Allergy (Unknown, Verified 02/13/24 15:19) Hives/whole body itchiness Tobacco use date assessed: 12/05/23 Dental Screening Dental Screen Date: 12/05/23 HPI update HPI Details Pt reports ongoing muscle spasms, fatigue, pain, temperature changes, N/V, blurred vision, neuropathy to upper and lower extremities, palpitations, and poor short term memory. She reports a recent episode of pain to her oriental orthodox region with diaphoresis. Pt also had a recent episode where her head felt heavy and she had to urinate frequently. Pt reports that with these episodes she can't speak. Pt has seen several specialists including neurology, endo, vascular, and rheumatology. Chronic fatigue syndrome was listed as a differential diagnosis. She has an upcoming appointment with infectious disease in July. Pt will contact me after this appointment. Denies fever, chills, and dizziness. 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 Mariano Arellano, Maryse Taylor, Igor Finn and colleagues, with an educational debbie from [employer]. Review of Systems Const Reports as per HPI Physical exam (Primary Care) Tobacco/Smoking Status: Tobacco use Status Tobacco use date assessed 12/05/23 06/06/24 08:01 Patient Tobacco Use Status Never used Tobacco 06/06/24 08:01 e-Cigarette/Vaping Use Never Used 06/06/24 08:01 Thrive Assessment: Date of Thrive Assessment Date Thrive assessed 11/24/21 06/06/24 08:01 Const General: cooperative Orientation/consciousness: patient oriented x3 Neuro General: patient oriented x3 Psych Appearance: grossly normal Mental Status: mental status grossly normal Speech and movement: Clear speech present Affect: normal affect Attitude: cooperative Thought process: Normal thought process present Thought content: Normal thought content present Insight: Good insight present (Psych) Judgement: Good judgement present (Psych) Telehealth Telehealth Telehealth Platform: [employer] Location of provider rendering services: practice address Location of patient: address on file Patient Identification confirmed using: Name, : Yes Telehealth method: video Patient verbally consented to treatment: Yes Patient verbally consented to billing insurance company: Yes Patient informed of any privacy concerns related to visit: Yes Minutes spent on Phone/Video with Pt.: 15 Assessment and Plan Assessment & Plan (1) Numbness and tingling of upper and lower extremities of both sides: Code(s): R20.0 - Anesthesia of skin; R20.2 - Paresthesia of skin (2) Illness: Code(s): R69 - Illness, unspecified Plan The patient agreed to the use of a biomedical engineering internship for this encounter. Scribed for JAQUI Brewster by Yuliana Han biomedical engineering internship, on 06/06/2024 at 08:00 EST. Coding Level of Care Code Tele Est Pt Level 3 (87208) Diagnoses Numbness and tingling of upper and lower extremities of both sides R20.0; R20.2 Illness R69
== END 2024-06-06 10:56 | disposition home or self-care (01) ==
LOC: HO.HMGC 07:01
PROVIDERS: PCP Nurse Practitioner Family; Visit Provider Nurse Practitioner Family
DX: R20.0 Anesthesia of skin (principal); R20.2 Paresthesia of skin; R69 Illness, unspecified
CPT/HCPCS: 99213

== ENCOUNTER 2024-10-10 08:23 | Outpatient (AMB) | payer OTHER, SELFPAY ==
--- NOTE | 2024-10-10 07:40 | MHC.OFFVIS ---
Intake Visit Reasons: 4 update- NEEDS PHQ-9 Allergies Sulfa (Sulfonamide Antibiotics) Allergy (Unknown, Verified 02/13/24 15:19) Hives/whole body itchiness Medication List - Last Reconciled 10/10/24 by JEFFERY Jaime lorazepam 0.5 mg PO DAILY PRN 6 days HPI HPI 4M update- NEEDS PHQ-9: Details: History of Present Illness The patient is a 39-year-old female presenting with chronic sinus pain associated with a long-standing dental issue. The root canal procedure was performed approximately 10 years ago and has resulted in complications, with the root extending into the sinus cavity. Recently, the patient has experienced increased pain localized to the right upper cheekbone, describing it as severe enough to be likened to being struck in the face. There has been no change in the pain despite administration of Augmentin, which was initiated following an urgent care visit on Tuesday. The patient notes living on Advil to manage the persistent discomfort. There has been no associated fever, chills, drainage, or pus. Current dental evaluations suggest that the root of the previously treated and capped tooth has penetrated the sinus cavity. The patient has been advised of the need for a CT scan prior to ENT evaluation (per ENT) due to possible bone graft necessity from excessive dental work. Review of Systems - General: Denies fever or chills. - Dental/Oral: Reports chronic pain linked to previous root canal. - Respiratory: Denies sinus infection symptoms or feeling congested. - Neurologic: Reports persistent pain on right upper cheekbone area. Physical Exam General: No apparent distress, well nourished Head: Normocephalic, reports pain at the right cheekbone area, faint swelling noted Eyes: non-icteric, pupils appear grossly symmetric Mouth: moist mucous membranes, airway patent Neck: Trachea midline Lungs: no respiratory distress, speaks in full sentences Neurologic: alert and cooperative, no dysarthria, face appears symmetric Psychiatric: affect normal, thought pattern linear Skin: no facial diaphoresis, no gross jaundice, no visible rash on exposed skin Note: This physical exam was conducted in conjunction with the patient via our Telehealth platform. Plan - For Chronic Sinusitis with Dental Complications: Proceed with ordering a CT scan to obtain a detailed view of the sinus region and assess the impact of the root canal on the sinus cavity. Expedite ENT referral pending the CT scan results for further evaluation and potential intervention. Continue Augmentin as prescribed despite lack of improvement, monitoring for any signs of superinfection or complications. - For Dental Root Canal Complications: Engage the dental care providers to attain records and images to expedite coordination with ENT services. Address potential necessity of a dental surgical intervention or tooth extraction given the anatomical complications and explore options with the dental team. Patient was informed and verbally consented to the use of an ambient scribe for clinic note documentation during this visit. Discussion Notes I have discussed with the patient the current dental complications associated with her past root canal procedure, specifically the risk of further sinus involvement and the need for imaging and consultation with ENT specialists. I explained that although a CT scan has been ordered on a priority basis, current healthcare constraints mean that results may not be immediate. We discussed the rationale for continuing Augmentin and the importance of modifying this therapy should symptoms evolve. I reiterated the importance of reported symptoms, especially any signs of infection, and encouraged communication via the patient portal for any updates or concerns. I have instructed that as soon as the CT results are available, they will be reviewed to inform the next steps in management, and I reassured the patient that her case is being actively managed. Patient Instructions - Continue taking prescribed Augmentin as directed. - Use Advil for pain management as needed, but monitor for any adverse reactions. - Await contact for scheduling of the CT scan; proceed with imaging promptly when contacted. - Maintain communication through the patient portal for updates or any new symptoms. - Monitor for signs of infection: fever, increased sinus tenderness, or discharge. - Prepare for potential ENT consultation, pending CT scan results. - Ensure dental records are forwarded for comprehensive care collaboration. 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 sinus involvement Code(s): J32.9 - Chronic sinusitis, unspecified Category: Medical Plan . Orders: Orders CT sinus wo/w IV con Today J32.9 - Chronic sinusitis, unspecified Coding Level of Care Code Tele Est Pt Level 3 (73144) Diagnoses Sinusitis, chronic J32.9
== END 2024-10-10 08:28 | disposition home or self-care (01) ==
LOC: HO.HMCC 08:23
PROVIDERS: PCP Nurse Practitioner Family; Visit Provider Nurse Practitioner Family
DX: J32.9 Chronic sinusitis, unspecified (principal)

== ENCOUNTER → 2024-10-10 08:23 | Outpatient (BNVA) | payer OTHER, SELFPAY | PROVIDERS: PCP Nurse Practitioner Family; Visit Provider Nurse Practitioner Family | DX: J32.9 Chronic sinusitis, unspecified (principal) ==

== ENCOUNTER 2025-01-07 09:02 | Outpatient (REF) | payer OTHER, SELFPAY ==
--- NOTE | ~2025-01-07 | XR_ITS ---
EXAMINATION: XR ABDOMEN 3 VIEWS HISTORY: K59.00 - Constipation, unspecified COMPARISON: There are no prior studies for comparison. FINDINGS: Supine and upright views of the abdomen are submitted. The bowel gas pattern is unremarkable, without evidence of mechanical obstruction. There is no free intraperitoneal gas. There is a moderate amount of stool throughout the colon. There are surgical clips in the right upper quadrant. There are phleboliths in the left hemipelvis. There are no abnormal soft tissue masses. The bones are intact. XR/XR abdomen 3V IMPRESSION: Moderate amount of stool throughout the colon. Electronically signed by: Mariano Tate MD 01/07/2025 09:33 AM [facility]
--- OUTSIDE RECORDS SUMMARY | 2025-01-07 09:41 | XMS_ITS | Referral Summary ---
Author Organization [facility] Address [address] [place] [address] Care Team Providers Care Quality Systems Manager Name Role Phone Genaro Morris Primary Care Provider Allergies Active Allergy Reactions Criticality Noted Date Comments Ergocalciferol (Vitamin D2) Chest pain 02/29/20 24 Sulfa (Sulfonamide Antibiotics) Hives 11/15 Medications DIETARY SUPPLEMENT ORAL Take by mouth. Medicinal mushrooms Active NON FORMULARY Fulvic acid Acti ve NON FORMULARY Cell food Active LORATADINE ORAL Take by mouth. Active cholecalciferol , vitamin D3, (VITAMIN D3 ORAL) Take 5,000 Units by mouth once a day. Active Active Problems Problem Noted Date Diagnosed Date Chronic neck pain 02/29/2024 Chronic thoracic back pain 02/29/2024 Chronic headaches 02/29/2024 Vitamin D deficiency 02/29/2024 Overview (02/29/2024): First noted in the EMR in 11/2022 (24.8). Resolved Problems Problem Noted Date Diagnosed Date Resolved Date Muscle fatigue 01/12/2024 02/29/2024 Assessment & Plan (01/12/2024 8:13 PM EST): The patient is a rather healthy 38-year-old female presenting with a number of somatic complaints that seem to defy precise localization to a single system. Primarily however she seems to complain of some fatigability and weakness though she also mentions some paresthesias. She has had an extensive rheumatologic workup which was essentially unrevealing. She has had MRIs of the brain, cervical spine, and thoracic spine which were unremarkable. She reportedly had an EMG of all 4 extremities which was likewise normal. Her neurologic examination is nonfocal though there seem to be some fatiguing of the eyelids when I had her look up for about a minute. While the clinical picture is not entirely convincing, it would be worthwhile to at least screen her for a neuromuscular junction disorder. I requested for a myasthenia panel. A remote differential diagnosis which can sometimes present with abdominal pain and neurologic symptoms is porphyria. I requested for a spot urine porphobilinogen. Further recommendations may follow pending results. She is otherwise continuing to investigate other potential explanations of her symptoms possibly with other specialists. Social History Tobacco Use Types Packs/Day Years Used Date Smoking Tobacco: Never Smokeless Tobacco: Never Tobacco Cessation:Counseling Given: Not Answered Alcohol Use Standard Drinks/Week Comments Not Currently 0 (1 standard drink = 0.6 oz pur e alcohol) Comments Unknown Sex and Gender Information Value Date Recorded Sex Assigned at Female 06/30/2023 11:24 AM EDT Legal Sex Female 10:07 AM EDT Gender Identity Female 06/30/2023 11:24 AM EDT Sexual Orientation Straight 06/30/2023 11 :24 AM EDT Last Filed Vital Signs Vital Sign Reading Time Taken Comments Blood Pressure 110/64 05/02/2024 9:51 AM EDT Pulse 64 05/02/2024 9:51 AM EDT Temperature 36.4 ??C (97.5 ??F) 05/02/2024 9:51 AM ED T Respiratory Rate 16 12/09/2023 9:40 AM EST Oxygen Saturation 98% 01/12/2024 9:53 AM EST Inhaled Oxygen Concentration - - Weight 65.6 kg (144 lb 11.2 oz) 05/02/2024 9:51 AM EDT Height 166.4 cm (5' 5.5 ) 05/02/2024 9:51 AM EDT Body Mass Index 23.71 05/02/2024 9:51 AM EDT Plan of Treatment Not on file Insurance [facility] MEDICAID Care Teams Quality Systems Manager Relationship Specialty Start Date End Date Genaro Morris [address] [place] [address] PCP - General 06/30/23
--- OUTSIDE RECORDS SUMMARY | 2025-01-07 09:41 | XMS_ITS | Encounter Summary ---
Author Organization [facility] Address [address] [place] [address] Care Team Providers Care Net Repairer Name Role Phone Physician, No Pcp Primary Care Provider Unavaila ble Reason for Visit * Reason Comments Abdominal Pain Constipation x 2 wee ks with abd pain and vomiting Encounter Details Date Type Department Care Team (Late st Contact Info) Description 01/03/2025 1:05 PM EST - 01/04/2025 12:04 AM EST Emergency [facility] Emergency [address] [place] [address] Discharge Disposition: Home or Self Care Social History Tobacco Use Types Packs/Day Years Used Date Smoking Tobacco: Never Smokeless Tobacco: Never Alcohol Use Standard Drinks/Week Comments No 0 (1 standard drink = 0.6 oz pur e alcohol) Comments Unknown Sex and Gender Information Value Date Recorded Sex Assigned at Female 01/04/2025 12:17 AM EST Legal Sex Female 12:50 AM EST Gender Identity Female 01/04/2025 12:17 AM EST Sexual Orientation Straight 01/04/2025 12 :17 AM EST documented as of this encounter Last Filed Vital Signs Vital Sign Reading Time Taken Comments Blood Pressure 107/82 01/03/2025 6:52 PM EST Pulse 79 01/03/2025 6:52 PM EST Temperature 37.1 ??C (98.8 ??F) 01/03/2025 6:52 PM ES T Respiratory Rate 18 01/03/2025 6:52 PM EST Oxygen Saturation 99% 01/03/2025 6:52 PM EST Inhaled Oxygen Concentration - - Weight 70.3 kg (155 lb) 01/03/2025 1:24 PM EST Height 165.1 cm (5' 5 ) 01/03/2025 1:24 PM EST Body Mass Index 25.79 01/03/2025 1:24 PM EST documented in this encounter Discharge Disposition Disposition Code Departure Means Destination Home or Self Care documented in this encounter Progress Notes * Laure Sainz RN - 01/03/2025 1:20 PM EST PT to ED with complaints of abd pain at the umbilicus, above it, below it and in the left upper quadrant. PT states it has been ongoing x2 weeks. PT reports some palpitations as well. States bowel movements have been easton like or mucous. PT states taking laxatives as she feels like she could be constipated but they aren't helping. documented in this encounter Plan of Treatment Not on file documented as of this encounter Procedures Procedure Name Priority Date/Time Associated Diagnosis Comments ECG ANNOTATED 01/04/2025 ECG 12-LEAD STAT 01/03/2025 2:37 PM EST CBC WITH AUTO DIFFERENTIAL STAT 01/03/2025 2:34 PM EST CBC AND DIFFERENTIAL STAT 01/03/2025 2:34 PM EST LIPASE STAT 01/03/2025 2:34 PM EST COMPREHENSIVE METABOLIC PANEL STAT 01/03/2025 2:34 PM EST documented in this encounter Results * ECG-Annotated (01/04/2025) us Provider Onbase MD ECG ORDERABLES Final Result * ECG 12 lead (01/03/2025 2:37 PM EST) Ventricular Rate ECG 67 BPM GEMUSE Atrial Rate 67 BPM GEMUSE P-R Interval 176 ms GEMUSE QRS Duration 92 ms GEMUSE Q-T Interval 416 ms GEMUSE QTc 439 ms GEMUSE P Wave [place] 26 degrees GEMUSE R [place] 35 degrees GEMUSE T [place] 30 degrees GEMUSE ECG Interpretation Normal sinus rhythm Nonspecific ST abnormality Abnormal ECG When compared with ECG of 29-NOV-2023 13:31, Nonspecific T wave abnormality no longer evident in Lateral leads Confirmed by MD Winston Christopher ([id number]) on 01/03/2025 10:00:27 PM GEMUSE 01/03/2025 2:37 PM EST 01/03/2025 10:00 PM EST us Hodan MILTON ECG ORDERABLES Final Result GEMUSE * (ABNORMAL) CBC auto differential (01/03/2025 2:34 PM EST) WBC 9.8 4.8 - 10.8 K/mcL LAB HEMETOLOGY METHOD 01/03/2025 2:51 PM [facility] RBC 4.30 3.80 - 4.80 M/mcL LAB HEMETOLOGY METHOD 01/03/2025 2:51 PM [facility] Hemoglobin 12.3 11.5 - 16.0 g/dL LAB HEMETOLOGY METHOD 01/03/2025 2:51 PM [facility] Hematocrit 37.3 35.0 - 47.0 % LAB HEMETOLOGY METHOD 01/03/2025 2:51 PM [facility] MCV 86.9 79.0 - 98.0 FL LAB HEMETOLOGY METHOD 01/03/2025 2:51 PM [facility] MCH 28.7 27.0 - 32.0 pcg LAB HEMETOLOGY METHOD 01/03/2025 2:51 PM [facility] MCHC 33.0 32.0 - 37.0 g/dL LAB HEMETOLOGY METHOD 01/03/2025 2:51 PM [facility] RDW 11.5 11.0 - 15.0 % LAB HEMETOLOGY METHOD 01/03/2025 2:51 PM [facility] Platelets 271 130 - 400 K/mcL LAB HEMETOLOGY METHOD 01/03/2025 2:51 PM [facility] MPV 9.3 7.0 - 11.0 FL LAB HEMETOLOGY METHOD 01/03/2025 2:51 PM [facility] NRBC 0.0 <1.0 % LAB HEMETOLOGY METHOD 01/03/2025 2:51 PM [facility] NRBC Absolute 0.00 <0.10 K/mcL LAB HEMETOLOGY METHOD 01/03/2025 2:51 PM [facility] Neutrophils Relative 58.8 % LAB HEMETOLOGY METHOD 01/03/2025 2:51 PM [facility] Lymphocytes Relative 26.6 % LAB HEMETOLOGY METHOD 01/03/2025 2:51 PM [facility] Monocytes Relative 4.5 % LAB HEMETOLOGY METHOD 01/03/2025 2:51 PM [facility] Eosinophils Relative 9.0 % LAB HEMETOLOGY METHOD 01/03/2025 2:51 PM [facility] Basophils Relative 0.8 % LAB HEMETOLOGY METHOD 01/03/2025 2:51 PM [facility] Immature Granulocytes Relative 0.3 % LAB HEMETOLOGY METHOD 01/03/2025 2:51 PM [facility] Neutrophils Absolute 5.76 1.50 - 7.00 K/mcL LAB HEMETOLOGY METHOD 01/03/2025 2:51 PM [facility] Lymphocytes Absolute 2.60 1.00 - 5.00 K/mcL LAB HEMETOLOGY METHOD 01/03/2025 2:51 PM [facility] Monocytes Absolute 0.44 0.20 - 1.00 K/mcL LAB HEMETOLOGY METHOD 01/03/2025 2:51 PM [facility] Eosinophils Absolute 0.88(H) 0.00 - 0.50 K/[facility] LAB HEMETOLOGY METHOD 01/03/2025 2:51 PM EST [facility] Basophils Absolute 0.08 0.00 - 0.20 K/[facility] LAB HEMETOLOGY METHOD 01/03/2025 2:51 PM EST [facility] Immature Granulocytes Absolute 0.03 0.00 - 0.03 K/[facility] HEMETOLOGY METHOD 01/03/2025 2:51 PM EST [facility] Blood Venous blood specimen / Unknown Venipuncture / Unknown 01/03/2025 2:34 PM EST 01/03/2025 2:45 PM EST Hodan MILTON LAB BLOOD ORDERABLES Final Re sult Performing Organization Address City/[facility]/ZIP Co de Phone Number [facility] [address] [place] [address], [place] [phone] * Lipase (01/03/2025 2:34 PM EST) Pathologist [facility] Lipase 29 13 - 75 unit/L LAB CHEMISTRY METHOD 01/03/2025 3:16 PM EST [facility] Blood Venous blood specimen / Unknown Venipuncture / Unknown 01/03/2025 2:34 PM EST 01/03/2025 2:45 PM EST Hodan MILTON LAB BLOOD ORDERABLES Final Re sult [facility] [address] [place] [address], [place] [phone] * (ABNORMAL) Comprehensive metabolic panel (01/03/2025 2:34 PM EST) Sodium 140 133 - 145 mmol/L LAB CHEMISTRY METHOD 01/03/2025 3:16 PM EST [facility] Potassium 4.4 3.5 - 5.5 mmol/L LAB CHEMISTRY METHOD 01/03/2025 3:16 PM [facility] Chloride 108 96 - 110 mmol/L LAB CHEMISTRY METHOD 01/03/2025 3:16 PM [facility] CO2 26 21 - 32 mmol/L LAB CHEMISTRY METHOD 01/03/2025 3:16 PM [facility] Anion Gap 6 3 - 11 LAB CHEMISTRY METHOD 01/03/2025 3:16 PM [facility] Glucose 80 70 - 100 mg/dL LAB CHEMISTRY METHOD 01/03/2025 3:16 PM [facility] BUN 4(L) 5 - 25 mg/dL LAB CHEMISTRY METHOD 01/03/2025 3:16 PM [facility] Creatinine 0.49(L) 0.50 - 1.10 mg/dL LAB CHEMISTRY METHOD 01/03/2025 3:16 PM [facility] eGFR 123 >=60 mL/min/1. 73m2 LAB CHEMISTRY METHOD 01/03/2025 3:16 PM [facility] Comment:Calculation based on the??Chronic Kidney Disease Epidemiology Collaboration (CKD-EPI) equation refit??without adjustment for race. BUN/Creatinine Ratio 8.2 LAB CHEMISTRY METHOD 01/03/2025 3:16 PM [facility] Calcium 9.1 8.5 - 10.5 mg/dL LAB CHEMISTRY METHOD 01/03/2025 3:16 PM [facility] AST (SGOT) 15 10 - 42 unit/L LAB CHEMISTRY METHOD 01/03/2025 3:16 PM [facility] ALT (SGPT) 17 10 - 60 unit/L LAB CHEMISTRY METHOD 01/03/2025 3:16 PM [facility] Alkaline Phosphatase 62 42 - 121 unit/L LAB CHEMISTRY METHOD 01/03/2025 3:16 PM [facility] Total Protein 6.9 6.0 - 8.0 g/dL LAB CHEMISTRY METHOD 01/03/2025 3:16 PM EST [facility] Albumin 4.0 3.2 - 5.0 g/dL LAB CHEMISTRY METHOD 01/03/2025 3:16 PM EST [facility] Total Bilirubin 0.6 0.0 - 1.4 mg/dL LAB CHEMISTRY METHOD 01/03/2025 3:16 PM EST [facility] Blood Venous blood specimen / Unknown Venipuncture / Unknown 01/03/2025 2:34 PM EST 01/03/2025 2:45 PM EST Hodan MILTON LAB BLOOD ORDERABLES Final Re sult [facility] [address] [place] [address], documented in this encounter Visit Diagnoses Not on filedocumented in this encounter Care Teams Net Repairer Relationship Specialty Start Date End Date Physician, No Pcp PCP - General 01/03/25 documented as of this encounter
--- OUTSIDE RECORDS SUMMARY | 2025-01-07 09:41 | XMS_ITS | Clinical Summary ---
Author Organization [facility] Address [address] [place] [address] Care Team Providers Care Outside Sales Engineer Name Role Phone Genaro Morris Primary Care Provider [phone] Allergies Active Allergy Reactions Criticality Noted Date [...] of her symptoms possibly with other specialists. Family History Medical History Relation Name Comments No Known Problems Brother 1 Nithin Obesity Brother 2 Blayne Urolithiasis Brother 2 Blayne Coronary artery disease Father CABG x 4; smoker; no MS Diabetes type II Father Dialysis Father diabetic nephro angel Hyperlipidemia Father Hypertension Father Urolithiasis Father Depression Mother Hypothyroidism Mother Asthma Sister Mona smoker; cold-in duced Chiari malformation Sister Mona Celiac disease Neg Hx Crohn's disease Neg Hx Diabetes type I Neg Hx Hypercalcemia Neg Hx Hyperparathyroidism Neg Hx Multiple endocrine neoplasia Neg Hx Multiple sclerosis Neg Hx Rheum arthritis Neg Hx Seizures Neg Hx Stroke Neg Hx Systemic Lupus Erythematosus Neg Hx Thyroid cancer Neg Hx Thyroid nodules Neg Hx Ulcerative colitis Neg Hx Relation Name Status Comments Brother 1 Nithin Alive Brother 2 Blayne Alive Father Alive Mother Alive Sister Mona Alive Social History Tobacco Use Types Packs/Day Years [...] 05/02/2024 9:51 AM EDT Plan of Treatment Health Maintenance Due Date Last Done Comments HIV Screening 1985 HPV and Pap Smear 1985 Hepatitis C Screening 1985 Varicella Vaccines (1 of 2 - 13+ 2-dose series) 1998 Hepatitis B Vaccines (1 of 3 - 19+ 3-dose series) 2004 Cervical Cancer Screening 02/07/2022 Pap Smear 02/07/2022 02/07/2019 COVID-19 Vaccine (1 - 2023-2 5 season) 2024 Influenza Vaccine (#1) 2024 Alcohol/Substance Use Screening 11/14/2024 Depression Screening and Follow-Up 11/14/2024 Social Drivers of Health Bryanna ual Screening 11/14/2024 DTaP,Tdap,and Td Vaccines (2 - Td or Tdap) 03/14/2025 03/14/2015 RSV Vaccine (60+ years old a nd patients) (1 - 1-dose 75+ series) 2060 Pneumococcal Vaccine: Pediat john (0-5 Years) and At-Risk Patients (6-50 Years) Aged Out No longer eligible b ased on patient's age to complete this topic Insurance [facility] MEDICAID Care Teams Outside Sales Engineer Relationship Specialty Start Date End Date Genaro Morris [facility] [address] PCP - General 06/30/23
== END 2025-01-07 09:03 | disposition home or self-care (01) ==
LOC: HO.XRAY 09:02
PROVIDERS: PCP Nurse Practitioner Family; Visit Provider Nurse Practitioner Family
DX: K59.00 Constipation, unspecified (principal); R10.9 Unspecified abdominal pain
CPT/HCPCS: 74021

== ENCOUNTER → 2025-01-07 09:07 | Outpatient (BNV) | payer OTHER, SELFPAY | PROVIDERS: PCP Nurse Practitioner Family; Visit Provider Radiology Diagnostic Radiology | DX: K59.00 Constipation, unspecified (principal) | CPT/HCPCS: 74021 ==

== ENCOUNTER 2025-07-10 06:56 | Outpatient (AMB) | payer OTHER, SELFPAY ==
--- OUTSIDE RECORDS SUMMARY | 2025-07-10 07:01 | XMS_ITS | Clinical Summary ---
Author Organization [facility] Address [address] [place] [address] Care Team Providers Care Associate Professor Of Kinesiology Name Role Phone Genaro Morris Primary Care [...] disease Father CABG x 4; smoker; no HI Diabetes type II Father Dialysis Father diabetic [...] 64 05/02/2024 9:51 AM EDT Temperature 36.4 C (97.5 F) 05/02/2024 9:51 AM EDT Respiratory Rate 16 12/09/2023 9:40 AM EST [...] Vaccine (1 - 2023-2 5 season) 2024 Alcohol/Substance Use Screening 11/14/2024 Depression Screening and Follow-Up 11/14/2024 Social Drivers of Health Bryanna ual Screening 11/14/2024 DTaP,Tdap,and Td Vaccines (2 - Td or Tdap) 03/14/2025 03/14/2015 Influenza Vaccine (#1) 2025 RSV Vaccine (60+ years old a nd patients) (1 - 1-dose 75+ series) 2060 Pneumococcal Vaccine: Pediat john (0-5 Years) and At-Risk Patients (6-50 Years) Aged Out No longer eligible b ased on patient's age to complete this topic Insurance [facility] MEDICAID Care Teams Associate Professor Of Kinesiology Relationship Specialty Start Date End Date Genaro Morris [address] [place] [address] PCP - General 06/30/23
--- OUTSIDE RECORDS SUMMARY | 2025-07-10 07:01 | XMS_ITS | Clinical Summary ---
Author Organization [facility] Address [address] [place] [address] Phone Care Team Providers Care Airplane Captain Name Role Phone Physician, No Pcp Primary Care Provider Unavaila ble Allergies Active Allergy Reactions Criticality Noted Date Comments Ergocalciferol (Vitamin D2) Cardiac Issue 01/03 Sulfa (Sulfonamide Antibiotics) 12/16 Surgical History Surgery Date Site/Laterality Comments WISDOM TOOTH EXTRACTION PROCEDURE: HISTORICAL WISDOM TEETH EXTRACTION CHOLECYSTECTOMY PROCEDURE: IN LAPAROSCOPY SURG CHOLECYSTECTOMY Medical History Medical History Date Comments Patient denies medical problems DX:Patient denies medical problems Family History Medical History Relation Name Comments Diabetes Father Hyperthyroidism Mother Asthma Sister Relation Name Status Comments Brother Alive Father Alive Mother Alive Sister Alive Social History Tobacco Use Types Packs/Day [...] Orientation Straight 01/04/2025 12 :17 AM EST Obstetrics History Last Filed Vital Signs Vital Sign Reading Time Taken Comments Blood Pressure 107/82 01/03/2025 6:52 PM EST Pulse 79 01/03/2025 6:52 PM EST Temperature 37.1 C (98.8 F) 01/03/2025 6:52 PM EST Respiratory Rate 18 01/03/2025 6:52 PM EST Oxygen Saturation 99% 01/03/2025 6:52 PM EST Inhaled Oxygen Concentration - - Weight 70.3 kg (155 lb) 01/03/2025 1:24 PM EST Height 165.1 cm (5' 5 ) 01/03/2025 1:24 PM EST Body Mass Index 25.79 01/03/2025 1:24 PM EST Plan of Treatment Health Maintenance Due Date Last Done Comments Hepatitis B Vaccines (1 of 3 - 19+ 3-dose series) 2004 Cervical Cancer Screening: P ap Smear 02/07/2022 02/07/2019 HIV Screening 07/07/2024 Social Influencers of Health Screening 07/07/2024 COVID-19 Vaccine (1 - 2023-2 5 season) 2024 Depression Screening 11/14/2024 DTaP,Tdap,and Td Vaccines (2 - Td or Tdap) 03/14/2025 03/14/2015 Influenza Vaccine (#1) 2025 Hepatitis C Screening Completed 11/01/2024 HIB Vaccines Aged Out No longer eligi ble based on patient's age to complete this topic HPV Vaccines Aged Out No longer eligi ble based on patient's age to complete this topic Hepatitis A Vaccines Aged Out No long er eligible based on patient's age to complete this topic IPV Vaccines Aged Out No longer eligi ble based on patient's age to complete this topic MMR Vaccines Aged Out No longer eligi ble based on patient's age to complete this topic Meningococcal ACWY Vaccine Aged Out N o longer eligible based on patient's age to complete this topic Meningococcal B Vaccine Aged Out No l onger eligible based on patient's age to complete this topic Pneumococcal Vaccine: Pediat rics (0 to 5 Years) and At-Risk Patients (6 to 49 Years) Aged Out No longer eligi ble based on patient's age to complete this topic RSV Immunization Patients Un dionte 20 months Aged Out No longer eligible b ased on patient's age to complete this topic Varicella Vaccines Aged Out No longer eligible based on patient's age to complete this topic Procedures Procedure Name Priority Date/Time Associated Diagnosis Comments PAP SMEAR Routine 02/07/2019 from Last 3 Months or Most Recently Relevant to Health Maintenance Results * Pap smear (02/07/2019) 02/07/2019 Narrative HISTORICAL TESTING LAB RESULTING AGENCY - 02/15/2019 2:57 PM EDT [id number] THINPREP PAP AND CELL BLOCK: NEGATIVE FOR SQUAMOUS INTRAEPITHELIAL LESION AND MALIGNANCY . PARTIALLY OBSCURING LUBRICANT IS PRESENT. ALESIA SAMUELS , FRANCIS(ASCP) (CASE SCREENED 02 14 2019) CLARI DE LA O M.D. , PATHOLOGIST (CASE ELECTRONICALLY SIGNED 02 14 2019) RESULT OF APTIMA HIGH RISK HPV ASSAY: HIGH RISK HPV: NEGATIVE (SEROTYPES 16,18,31,33,35,39,45,51,52,56,58,59,66,68) COMPLETED ON 2019-02-09 ADEQUACY: SATISFACTORY ENDOCERVICAL/TRANSFORMATION ZONE COMPONENT PRESENT. SOURCE: THINPREP PAP HPV ANY DX: REFLEX 16 AND 18, CERVICAL, IMAGED CLINICAL INFORMATION: HPV ANY DIAGNOSIS. Z12.4, Z01.419, HORMONES CB 02/09/19 Triny Sams DO LAB CYTOLOGY ORDERABLES Final Result HISTORICAL TESTING LAB RESULTING AGENCY from Last 3 Months or Most Recently Relevant to Health Maintenance Insurance [facility] Advance Directives Documents on File Type Date Recorded Patient Laundry Agent Expl anation Health Care Decision (hx) 10/16/2018 AD MACIEL DIRECTIVE Health Care Decision (hx) 10/16/2018 AD MACIEL DIRECTIVE Health Care Decision (hx) 10/16/2018 AD MACIEL DIRECTIVE Health Care Decision (hx) 10/16/2018 AD MACIEL DIRECTIVE Care Teams Airplane Captain Relationship Specialty Start Date End Date Physician, No Pcp PCP - General 01/03/25
--- OUTSIDE RECORDS SUMMARY | 2025-07-10 07:01 | XMS_ITS | Encounter Summary ---
Author Organization [facility] Address [address] [place] [address] [place] [phone] Phone Care Team Providers Care Marketing Programs Manager Name Role Phone Genaro Morris NP Primary Care Provider + Terry King MD, DDS Unavailable [phone] Encounter Details Date Type Department Care Team (Late st Contact Info) Description 02/04/2025 Procedure Pass [facility] [address] [place] [id number] Social History Tobacco Use Types Packs/Day Years Used Date Smoking Tobacco: Never Smokeless Tobacco: Never Alcohol Use Standard Drinks/Week Comments Not Currently 0 (1 standard drink = 0.6 oz pur e alcohol) Education Answer Date Recorded Are you interested in more education? Not on jessica e 03/12/2023 Are you concerned about learning? Not on file 03/12/2023 No 03/12/2023 No 03/12/2023 Digital Access Answer Date Recorded No 04/10/2023 No 04/10/2023 Reliable internet access at home? Not on file 04/10/2023 Device with a working camera? Not on file Intimate Partner Violence Answer Date R ecorded Are you denied basic needs s uch as food, clothing, or medical care? No 02/04/2025 In the past 12 months have y ou been in a relationship with a person who hurts, threatens, or tries to control you? No 02/04/2025 Are you denied basic needs s uch as food, clothing, or medical care? No 02/04/2025 In the past 12 months have y ou been in a relationship with a person who hurts, threatens, or tries to control you? No 02/04/2025 Comments No Sex and Gender Information Value Date Recorded Sex Assigned at Female 08/04/2021 4:34 PM EDT Legal Sex Female 4:26 PM EDT Gender Identity Female 08/04/2021 4:34 PM EDT Sexual Orientation Straight 08/04/2021 4: 34 PM EDT documented as of this encounter Plan of Treatment Not on file documented as of this encounter Goals Goal Patient Goal Type Associated Problems Recent Progress Patient-Stated? Author Attending meditation / other stress management classes Lifestyle No Jerry Juan MD, MPH Note: SMART program documented as of this encounter Visit Diagnoses Not on filedocumented in this encounter Care Teams Marketing Programs Manager Relationship Specialty Start Date End Date Genaro Morris NP [facility] [place] [address] PCP - General Nurse Practitioner 05/04/23 Terry King MD, DDS [address] [place] [id number] [email or web address] 10/29/24 documented as of this encounter Additional Source Comments The information contained in this document represents components of the legal health record. It is not the complete legal health record.[facility]
--- OUTSIDE RECORDS SUMMARY | 2025-07-10 07:01 | XMS_ITS | Encounter Summary ---
Author Organization [facility] Address [address] [place] [address] [place] [address] Phone Care Team Providers Care Shift Boss Name Role Phone Genaro Morris NP Primary Care Provider + Terry King MD, DDS Unavailable [phone] Encounter Details Date Type Department Care Team (Late st Contact Info) Description 11/08/[address] [facility] Cardiac US [address] [place] [address] Social History Tobacco Use Types Packs/Day Years [...] with a working camera? Not on file Comments Unknown Sex and Gender Information Value [...] on filedocumented in this encounter Care Teams Shift Boss Relationship Specialty Start Date End Date Genaro Morris NP [facility] [place] [address] PCP - General Nurse Practitioner 05/04/23 Terry King MD, DDS [address] [place] [id number] [email or web address] 10/29/24 documented as of this encounter Additional Source Comments The information contained in this document represents components of the legal health record. It is not the complete legal health record.[facility]
--- OUTSIDE RECORDS SUMMARY | 2025-07-10 07:01 | XMS_ITS | Clinical Summary ---
Author Organization [facility] Address [address] [place] [id number] Phone Care Team Providers Care Senior Cyber Security Analyst Name Role Phone Genaro Morris NP Primary Care Provider + Terry King MD, DDS Unavailable [phone] Allergies Active Allergy Reactions Criticality Noted Date Comments Ergocalciferol (Vitamin D2) Angina High 02/29/20 Milk Containing Products (Dairy) Sulfa (Sulfonamide Antibiotics) 11/15 Medications Medication-Free Text Pt taking mushroom supplements: lions mitchel, reishi, cordycepts, and turkey tail1-2 times daily PRN Active pyRIDostigmine (MESTINON) 60 mg tablet Take 0.5-1 tablets (30-60 mg total) by mouth 3 (three) times a day as needed (Fatigue). 60 tablet 5 4 Active Additional Information Patient not taking.Reported on 05/22/2024 nettle leaf (NETTLE, STINGING MISC) Take by mouth. Active thiamine/B2/adriana tarik/B12/papain (B-COMPLEX PLUS B-12 ORAL) 3 Active cholecalciferol 125 mcg/mL (5,000 unit/mL) oral drops Take 5,000 Units by mouth daily. Active amoxicillin-cla vulanate (AUGMENTIN) 875-125 mg per tablet Take 1 tablet by mouth 2 (two) times a day. 4 Active fluticasone propionate (FLONASE) 50 mcg/actuation nasal spray 1 spray by Nasal route as needed. 4 Active loratadine (CLARITIN) 10 mg tablet Take 10 mg by mouth daily. Active LORazepam (ATIVAN) 0.5 MG tablet Take 0.5 mg by mouth as needed. Prior to dental procedure 4 Active Medication-Free Text Take by mouth daily. LIPOSOMAL GLUTATHIONE Active Medication-Free Text Take 1 tablet by mouth daily. METAGENICS MULTIVITAMIN Active acetaminophen (TYLENOL) 650 MG CR tablet Take 1 tablet (650 mg total) by mouth every 8 (eight) hours as needed for pain (specific location in comments). 20 tablet 5 Active ibuprofen (ADVIL,MOTRIN) 800 MG tablet Take 1 tablet (800 mg total) by mouth every 6 (six) hours as needed for pain (specific location in comments). 20 tablet 5 Active chlorhexidine (PERIDEX) 0.12 % solution Use as directed 15 mL in the mouth or throat 2 (two) times a day. 473 mL 5 Active oxyCODONE 5 MG immediate release tablet Take 1 tablet (5 mg total) by mouth every 4 (four) hours as needed for pain (specific location in comments). Partial fill ok 5 tablet 5 Active chlorhexidine (PERIDEX) 0.12 % solution Use as directed 15 mL in the mouth or throat 2 (two) times a day. 120 mL 5 Active Active Problems Problem Noted Date Diagnosed Date Chronic headaches 02/29/2024 Chronic neck pain 02/29/2024 Chronic thoracic back pain 02/29/2024 Vitamin D deficiency 02/29/2024 Overview (05/29/2024): First noted in the EMR in 11/2022 (24.8). Palpitations 04/17/2023 Polyp of gallbladder 08/21/2018 Immunizations Immunization Administration Dates Next Due Tdap 03/14/2015 Family History Medical History Relation Comments Diabetes Father Anxiety disorder Mother COPD Mother Depression Mother Thyroid disease Mother Relation Status Comments Father Mother Social History Tobacco Use Types Packs/Day Years [...] Orientation Straight 08/04/2021 4: 34 PM EDT Last Filed Vital Signs Vital Sign Reading Time Taken Comments Blood Pressure 119/79 02/04/2025 12:03 PM EDT Pulse 76 02/04/2025 12:03 PM EDT Temperature 36.4 C (97.6 F) 02/04/2025 12:03 PM EDT Respiratory Rate 14 02/04/2025 12:03 PM EDT Oxygen Saturation 100% 02/04/2025 12:03 PM EDT Inhaled Oxygen Concentration - - Weight 70.3 kg (155 lb) 02/04/2025 7:36 AM EDT Height 165.1 cm (5' 5 ) 02/04/2025 7:36 AM EDT Body Mass Index 25.79 02/04/2025 7:36 AM EDT Plan of Treatment Health Maintenance Due Date Last Done Comments PAP SMEAR 02/07/2022 02/07/2019 DEPRESSION SCREENING 06/02/2024 06/02/2023 COVID-19 VACCINE (1 - 2023-2 5 season) 2024 Adult Td,Tdap Booster 03/14/2025 03/14/2015 SCREENING FOR DIABETES 11/01/2027 4, 05/22/2024, 04/03/2024 HEPATITIS C SCREENING Completed 11/01/2024 HIV ONE-TIME SCREENING (18-6 5 YEARS) Completed 11/01/2024 SMOKING STATUS SCREENING (On ce After 26 Yrs) Completed 01/07/2025 HEPATITIS A VACCINES Aged Out No long er eligible based on patient's age to complete this topic HIB VACCINES Aged Out No longer eligi ble based on patient's age to complete this topic MENINGOCOCCAL VACCINES (ACWY) Aged Out No longer eligible based on patient's age to complete this topic MENINGOCOCCAL VACCINES (B) Aged Out N o longer eligible based on patient's age to complete this topic PNEUMOCOCCAL VACCINES (0-49 years) Aged Out No longer eligible b ased on patient's age to complete this topic Goals Goal Patient Goal Type Associated Problems Recent Progress Patient-Stated? Author Attending meditation / other stress management classes Lifestyle No Jerry Juan MD, MPH Note: SMART program Medical Devices Implanted Type Area Manager Privacy Device Identifier Shelf Expiration Date Model / Serial / Lot Clips Abdomen Description:Lap jerod Procedures Procedure Name Priority Date/Time Associated Diagnosis Comments HEPATITIS C ANTIBODY, QUALITATIVE Routine 11/01/2024 10:56 AM EST Need for hepatitis C screening test GLUCOSE Routine 05/22/2024 2:49 PM EDT from Last 3 Months or Most Recently Relevant to Health Maintenance Results * Hepatitis C antibody, qualitative (11/01/2024 10:56 AM EST) HCV Nonreactive Nonreactive [facility] 11/01/2024 10:5 6 AM EST 11/01/2024 11:05 AM EST us Lani Knowles MD LAB BLOOD ORDERABLES Final Resul t [facility] [address] [place] [id number] * Glucose (05/22/2024 2:49 PM EDT) Glucose - External 123 05/22/2024 2:49 PM EDT Narrative Abran Paz RN - 05/22/2024 2:49 PM EDT Patient reported us Historical Provider LAB BLOOD ORDERABLES Emily l Result from Last 3 Months or Most Recently Relevant to Health Maintenance Insurance [facility]CO [facility] Care Teams Senior Cyber Security Analyst Relationship Specialty Start Date End Date Genaro Morris NP [address] [facility] [place] [id number] PCP - General Nurse Practitioner 05/04/23 Terry King MD, DDS [address] [place] [id number] border patrol agent 10/29/24 Additional Source Comments The information contained in this document represents components of the legal health record. It is not the complete legal health record.[facility]
--- NOTE | 2025-07-10 08:17 | A.OFFPC_ITS ---
Intake Visit Reasons: fmla Allergies Sulfa (Sulfonamide Antibiotics) Allergy (Unknown, Verified 02/13/24 15:19) Hives/whole body itchiness Tobacco use date assessed: 12/05/23 Dental Screening Dental Screen Date: 12/05/23 HPI fmla HPI Details History of Present Illness The patient is a 39-year-old female presenting with ongoing symptoms without a definitive diagnosis, primarily chronic fatigue syndrome. She reports experiencing muscle spasms throughout her entire body and paresthesias in different extremities, along with tremors, brain fog. The patient has consulted multiple specialists, including neurology, rheumatology, vascular, and infectious disease, primarily in the [facility], but has not received a conclusive diagnosis. Lyme disease testing has returned negative results. Financial constraints have limited her ability to pursue naturopathic evals/treatments, which are not covered by insurance. She is currently seeking disability benefits, having been denied initially, and is advised to appeal the decision. The patient denies experiencing chest pain or shortness of breath but continues to have tremors, brain fog, and paresthesias. She has seen a therapist and psychiatrist, with anxiety seemingly stemming from her symptoms rather than anxiety related to a possible chemical imbalance. Primary diagnosis of depression may be also present, because of her on ongoing symptoms and fight for diagnoses/finances.. Review of Systems - Neurological: Reports muscle spasms, p aresthesias, and tremors. Denies headaches or dizziness. - Cardiovascular: Denies chest pain or s hortness of breath. denies any si or hi Plan 1. Chronic Fatigue Syndrome The patient continues to experience symptoms consistent with chronic fatigue syndrome, including muscle spasms, paresthesias, and tremors. She has been referred to multiple specialists without a definitive diagnosis, and Lyme diseas e testing was negative. Financial constraints limit her ability to pursue further naturopathic evals/treatments. She is advised to appeal the denial of disability benefits and continue seeking specialist consultations as needed. 2. tremors/neuropathy/paresthesias: no true diagnosis yet Discussion Notes During the visit, I discussed with the patient the ongoing nature of her symptoms and the lack of a definitive diagnosis despite consultations with various specialists. I acknowledged her financial constraints in pursuing naturopathic treatments and encouraged her to appeal the denial of disability benefits. I also reassured her of continued support in seeking further specialist consultations as needed. Patient Instructions - Consider appealing the denial of disab ility benefits. - Continue seeking specialist consultati ons as needed. - Monitor symptoms and report any signif icant changes. 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 How often do you have six or more drinks on one occasion?: Never Total Score: 0 MARIO-7 AMB Questionnaire MARIO-7 Date MARIO - 7 assessed: 11/24/21 Source: Developed by Drs. Mariano Arellano, Maryse Taylor, Igor Finn and colleagues, with an educational debbie from [employer]. Physical exam (Primary Care) Tobacco/Smoking Status: Tobacco use Status Tobacco use date assessed 12/05/23 07/10/25 08:19 Patient Tobacco Use Status Never used Tobacco 07/10/25 08:19 e-Cigarette/Vaping Use Never Used 07/10/25 08:19 Thrive Assessment: Date of Thrive Assessment Date Thrive assessed 11/24/21 07/10/25 08:19 Coding Level of Care Code Tele Est Pt Level 3 (90626) Diagnoses Chronic fatigue syndrome G93.32 Weakness R53.1 Paresthesia R20.2 Assessment & Plan Assessment & Plan (1) Chronic fatigue syndrome: Code(s): G93.32 - Myalgic encephalomyelitis/chronic fatigue syndrome Category: Medical (2) Weakness: Code(s): R53.1 - Weakness Category: Medical (3) Paresthesia: Code(s): R20.2 - Paresthesia of skin Category: Medical Plan .
== END 2025-07-10 10:31 | disposition home or self-care (01) ==
LOC: HO.HMCC 06:57
PROVIDERS: PCP Nurse Practitioner Family; Visit Provider Nurse Practitioner Family
DX: G93.32 Myalgic encephalomyelitis/chronic fatigue syndrome (principal); R53.1 Weakness; R20.2 Paresthesia of skin